=== PATIENT | female | born 1950 | race Caucasian/White ===

== ENCOUNTER 2018-05-28 12:43 | Emergency (ER) | payer MEDICARE ==
[2018-05-28 13:04] VITALS: BP 152/88
--- NOTE | 2018-05-28 14:21 | ED Physician Documentation ---
PD HPI OPHTHO - Stated complaint Stated Complaint: BILAT EYE SWELLING/REDNESS/DRAINING - Chief complaint Chief Complaint: Heent - History obtained from History obtained from: Patient - History of Present Illness Timing - onset: Other (2 days of bilateral red eyes, started on the Left but now the right 2, but the left is worse. No visual deficit, she does not wear contacts.) Review of Systems Constitutional: denies: Fever, Chills Ears: denies: Loss of hearing, Ear pain, Drainage/discharge Nose: reports: Rhinorrhea / runny nose, Congestion Throat: denies: Sore throat PD PAST MEDICAL HISTORY - Present Medications Home Medications: Ambulatory Orders Medication Instructions Recorded Confirmed Cholecalciferol (Vitamin D3) 05/28/18 [Vitamin D3] Cyanocobalamin (Vitamin B-12) 05/28/18 [Vitamin B-12] Lactobacillus Acidophilus 05/28/18 [Probiotic Acidophilus] Lactobacillus Combo No.23 [Chepe 05/28/18 Probiotic] Levothyroxine [Synthroid] 05/28/18 Losartan Potassium 05/28/18 Polymyxin B/Trimeth Ophth Drop 1 drops EACHEYE Q3H 7 Days #1 05/28/18 [Polytrim Ophth Drops] bottle Vit C/Ascorb Sod/Multivit-Min 05/28/18 [Emergen-C 500 mg Chewable Tab] Vitamin E 05/28/18 - Allergies Allergies/Adverse Reactions: Allergies Allergy/AdvReac Type Severity Reaction Status Date / Time No Known Drug Allergies Allergy Verified 05/28/18 13:04 PD ED PE NORMAL - Vitals Vital signs reviewed: Yes - General General: Alert and oriented X 3, No acute distress - HEENT HEENT: PERRL, EOMI, Other (Bilateral conjunctivitis, left more than right, vision is grossly normal.) - Neck Neck: Supple, no meningeal sign, No bony TTP - Neuro Neuro: Alert and oriented X 3 - Psych Psych: Normal mood, Normal affect Results - Vitals Vitals: Vital Signs - 24 hr 05/28/18 13:01 Temperature 37.2 C Heart Rate 78 Respiratory 15 Rate Blood Pressure 152/88 H O2 Saturation 99 Oxygen O2 Source Room air Departure - Departure Disposition: 01 Home, Self Care Clinical Impression: Conjunctivitis Qualifiers: Conjunctivitis type: acute Acute conjunctivitis type: unspecified Laterality: bilateral Qualified Code(s): H10.33 - Unspecified acute conjunctivitis, bilateral Condition: Good Record reviewed to determine appropriate education?: Yes Instructions: ED Conjunctivitis Nonspecific Prescriptions: Polymyxin B/Trimeth Ophth Drop [Polytrim Ophth Drops] 1 drops EACHEYE Q3H 7 Days #1 bottle Comments: Follow-up with your doctor early next week if not better Forms: Activity restrictions
== END 2018-05-28 14:22 | disposition home or self-care (01) ==
LOC: ED 12:43
DX: H10.33 Unspecified acute conjunctivitis, bilateral (principal)
CPT/HCPCS: 99283